=== PATIENT | male | born 2000 | race Caucasian/White ===

== ENCOUNTER 2024-11-21 19:37 | Emergency (ER) | payer SELFPAY ==
[2024-11-21 19:39] VITALS: BP 120/79; PULSE 117; RESP 16; TEMP 36.6; O2SAT 99; BMI 20.1
--- NOTE | 2024-11-21 19:39 | XRR_ITS ---
PROCEDURE INFORMATION: Exam: XR Left Hand Exam date and time: 11/21/2024 7:49 PM Age: 24 years old Clinical indication: Injury or trauma; Other: Altercation; Bleeding/hemorrhage; Hand; Left TECHNIQUE: Imaging protocol: Radiologic exam of the left hand. Views: 3 or more views. COMPARISON: No relevant prior studies available. FINDINGS: Bones/joints: No fracture or dislocation. Soft tissues: Dorsal soft tissue swelling on lateral view. XR/XR hand LT min 3V* [id number] IMPRESSION: Dorsal soft tissue swelling, but no fracture or dislocation is identified.
--- NOTE | 2024-11-21 19:49 | ED_ITS ---
HPI - Wound/Laceration General: Chief Complaint: Wound/Laceration Stated Complaint: Medical Clearance Time Seen by Provider: 11/21/24 19:39 Source: patient and police Limitations: no limitations History of Present Illness: 24-year-old male is brought in by police they state that he had a knife when dropped and they show him with a beanbag gun beanbag came in the left hand does have a small laceration over his left second knuckle he has minimal pain denies any other injuries at this time. Associated symptoms: Denies chills, fever(s), nausea or vomiting Related Data Allergies Allergy/AdvReac Type Severity Reaction Status Date / Time No Known Allergies Allergy Verified 11/21/24 19:39 Review of Systems Const: Denies: fever(s), chills, body aches or change in appetite ENMT: Denies: throat pain or dental pain Card: Denies: chest pain Resp: Denies: dyspnea GI: Denies: abdominal pain, nausea, vomiting or diarrhea Musc: Reports: extremity pain; Denies: neck pain or back pain Skin/Breast: Denies: rash Neuro: Denies: headache(s) Physical Exam Const: COMMON NORMALS: no acute distress, patient oriented x3 and healthy appearing HENMT: COMMON NORMALS: normocephalic and atraumatic HEAD & SCALP: normocephalic and atraumatic Eye: COMMON NORMALS: conjunctivae normal CONJUNCTIVA: Yes conjunctivae normal Neck/C-Spine: COMMON NORMALS: full ROM and supple Chest: COMMONS NORMALS: normal inspection of the chest Resp: COMMON NORMALS: normal respiratory effort Cardio: COMMON NORMALS: regular rate RATE: regular rate Extremity: COMMON NORMALS: full ROM NARRATIVE EXTREMITY EXAM: 1 cm laceration over second knuckle deep structures tendons intact Neuro: COMMON NORMALS: patient oriented x3, moves all extremities and no focal motor deficits Psych: COMMON NORMALS: mental status grossly normal, Normal thought process present and cooperative THOUGHT PROCESS: Normal thought process present Skin: COMMON NORMALS: no rashes or lesions noted and no wounds GENERAL SKIN EXAM: no rashes or lesions noted Procedures Laceration Laceration 1: Site: hand Side (If applicable): left Size (cm): 1 Description: involves chris border Depth: simple, single layer, involves muscle layer and involves tendon Pre-repair: wound explored and irrigated extensively Skin layer closed with: other (dermabond) Course Vital Signs: Vital signs: Vital Signs Temperature 97.8 F 11/21/24 19:39 Pulse Rate 117 H 11/21/24 19:39 Respiratory Rate 16 11/21/24 19:39 Blood Pressure 120/79 11/21/24 19:39 Pulse Oximetry 99 11/21/24 19:39 Oxygen Delivery Me thod Room Air 11/21/24 19:39 MDM - Wound/Laceration Medical Decision Making Patient presents for laceration did repair with tissue adhesive patient stable for discharge follow-up PCP return if worsening x-ray shows no fracture XR interpretation done by ED provider, pending radiology final review ED provider radiology interpretation(s): X-ray left hand no acute fracture Discharge Plan Discharge Patient Disposition: Home Clinical Impression: Laceration Condition: Stable Discharge Orders: Discharge ED (Routine); Ordered 11/21/24 Ordered By: Kiki Shipman Discharge Diet: Advance as tolerated Discharge Activity: Resume usual activity Patient Instructions: Laceration (ED), Skin Adhesive Care (ED) Print Language: Slovenian Coding Level of Care Code ED Seeing Eye Dog Trainer for Jeremiah Lagunas
== END 2024-11-21 20:11 | disposition home or self-care (01) ==
LOC: ER 19:54
PROVIDERS: Emergency Provider Emergency Medicine
DX: S61.412A Laceration without foreign body of left hand, initial encounter (principal); W26.0XXA Contact with knife, initial encounter
CPT/HCPCS: 12001; 73130; 99283